=== PATIENT | female | born 1950 | race Caucasian/White ===

== ENCOUNTER 2016-12-08 12:54 | Emergency (ER) | payer MEDICARE ==
[~2016-12-08] VITALS: Ht 172.7 cm; Wt 119.3 kg
--- NOTE | ~2016-12-08 | EKG ---
PATIENT: KRISH LOVE UNIT #: [id number] Ventricular Rate: 73 BPM Atrial Rate: 73 BPM P-R Interval: 392 ms QRS Duration: 204 ms Q-T Interval: 490 ms QTC Calculation(Bezet): 539 ms Calculated R [place]: -72 degrees Calculated T [place]: 62 degrees Diagnosis Line: Electronic ventricular pacemaker Diagnosis Line: Left axis deviation Diagnosis Line: Possible Lateral infarct , age undetermined Diagnosis Line: Abnormal ECG Diagnosis Line: When compared with ECG of 16-MAY-2013 12:53, Diagnosis Line: Significant changes have occurred Diagnosis Line: Confirmed by LLOYD BERMAN MD ([id number]) on 12/09/2016 Diagnosis Line: 3:44:54 PM INTERPRETING MD: CULLEN VICTORIA
--- NOTE | ~2016-12-08 | CR72 ---
[facility] A Service of [facility] RADIOLOGY TEXT RESULTS PATIENT: KRISH LOVE LOCATION: [facility] : 49 UNIT #: [id number] AGE: [address]: Chris Walsh MD SEX: F ORDER DR: [id number] [facility] [address] [place], [place] [address] [id number] E MR#: [id number] Acc #: [id number] NAME: KRISH LOVE : 1950 SEX: F STUDY DATE/TIME: 12/08/2016 14:21 UNIT: [facility] ROOM: STUDY DESCRIPTION: CR Chest Single View Portable Attending Physician: Chris Walsh M.D. Ordering Physician: Chris Walsh M.D. Primary Care Physician: No Primary Care Physician MEDICAL IMAGING REPORT This report is preliminary unless electronic signature is present EXAM Portable chest HISTORY Shortness of breath with right leg swelling for the past day TECHNIQUE Single AP view chest was obtained. FINDINGS Cardiomegaly is noted. Pacemaker leads appear satisfactory. Diffuse interstitial prominence is noted bilaterally. This could reflect either acute interstitial edema or chronic interstitial lung disease. It is most prominent left base where there is moderate volume loss. No pleural fluid is seen. Pulmonary vascular markings are normal. IMPRESSION Diffuse bilateral interstitial infiltrates most prominent at the left lung base. The infiltrates are nonspecific but likely reflect chronic interstitial lung disease rather than acute interstitial edema. There is volume loss in the left base contributing to increased markings in this area. Cardiomegaly is noted. No definite active infiltrates are seen. Dictated by... Anmol Tran M.D. THIS IS AN ELECTRONICALLY VERIFIED REPORT Anmol Tran M.D. at 12/10/2016 10:57 AM BRITTON/ebony TD: 12/08/2016 21:05 JOB #: [id number] [facility] A Service [facility] RADIOLOGY TEXT RESULTS PATIENT: KRISH LOVE LOCATION: [facility] : 48 UNIT #: [id number] AGE: [address]: Chris Walsh MD SEX: F ORDER DR: MEDICAL IMAGING REPORT Page 1 of 1 COPY
--- NOTE | ~2016-12-08 | US85 ---
[facility] A Service of [facility] RADIOLOGY TEXT RESULTS PATIENT: KRISH LOVE LOCATION: [facility] : 48 UNIT #: [id number] AGE: [address]: Chris Walsh MD SEX: F ORDER DR: [id number] [facility] [address] [place], [place] [address] [id number] E MR#: [id number] Acc #: [id number] NAME: KRISH LOVE. : 1950 SEX: F STUDY DATE/TIME: 12/08/2016 15:09 UNIT: [facility] ROOM: STUDY DESCRIPTION: [facility] [facility] [employer] Attending Physician: Chris Walsh M.D. Ordering Physician: Chris Walsh M.D. Primary Care Physician: Primary Care Physician No MEDICAL IMAGING REPORT This report is preliminary unless electronic signature is present EXAM Right lower extremity venous ultrasound. HISTORY Read extremity pain and swelling and redness for 2 days. FINDINGS Ultrasound examination of the right lower extremity veins was performed from the groin to the calf with aranda-scale, color Doppler and spectral Doppler evaluation. There is nonocclusive DVT in the common femoral and in the proximal, mid and distal superficial femoral vein, with echogenic linear intraluminal filling defects suggesting chronic DVT. No additional DVT and no findings to suggest acute DVT. The remainder of the veins are patent and compressible. IMPRESSION 1. Nonocclusive chronic-appearing DVT in the common femoral vein and proximal mid and distal superficial femoral vein. 2. Remainder of the study is negative. Dictated by... Ifeanyi Philip M.D. THIS IS AN ELECTRONICALLY VERIFIED REPORT Ifeanyi Philip M.D. at 12/09/2016 10:02 PM DFL/rnr TD: 12/09/2016 00:26 JOB #: [id number] [facility] A Service of [facility] RADIOLOGY TEXT RESULTS PATIENT: KRISH LOVE LOCATION: [facility] #: [id number] : 48 UNIT #: [id number] AGE: [address]: Chris Walsh MD SEX: F ORDER DR: MEDICAL IMAGING REPORT Page 1 of 1 COPY
[~2016-12-08 12:54] MED LIST: ALBUTEROL17 GM INH; COUMADIN5 MG PO; DOXYCYCLINE HY100 M3 PO; KEFLEX500 M1 PO; LORTAB 5-325 M1 EACH PO; LOVENOX150 MG/ML SQ; MEDROL4 MG/DOSE- PO; NICOTINE TRANSD14 MG EXT; NO MEDICATIONS; ZITHROMAX1 G/PKT PO
[2016-12-08 14:48] LABS: BASOPHIL% 0.3 % (0-2.5); EOSINOPHIL# 0.2 X10e3 (0-0.7); EOSINOPHIL% 3.9 % (0.0-7.0); HEMATOCRIT 40.2 % (35.0-45.0); HEMOGLOBIN 13.3 gm/dL (12.0-16.0); LYMPHOCYTE# 1.5 X10e3 (1.0-3.5); LYMPHOCYTE% 23.1 % (17.0-45.0); MEAN CELL VOLUME 86.4 FL (83-96); MEAN CORPUSCULAR HEMOGLOBIN 28.5 PG (28-34); MEAN PLATELET VOLUME 7.2 FL (6.5-11.5); MONOCYTE# 0.4 X10e3 (0-1.0); MONOCYTE% 6.3 % (3.0-12.0); NEUTROPHIL# 4.3 X10e3 (1.5-7.1); NEUTROPHIL% 66.4 % (40-75); PLATELET COUNT 195 X10e3 (140-420); RED BLOOD COUNT 4.66 X10e (3.90-5.30); RED CELL DISTRIBUTION WIDTH 19.6 % (11.0-15.5); WHITE BLOOD COUNT 6.4 X10e3 (4.0-10.5)
[2016-12-08 14:53] LABS: DIFF IND NO
[2016-12-08 15:08] LABS: INR 2.8; PARTIAL THROMBOPLASTIN TIME 37.6 SECONDS (23.5-31.3); PROTHROMBIN TIME (PATIENT) 30.1 SECONDS (10.0-11.7)
[2016-12-08 15:10] LABS: POC - CKMB 1.5 ng/mL (0.0-7.9); POC - TROPONIN <0.05 ng/mL (<=0.05)
[2016-12-08 15:24] LABS: ALBUMIN SERUM 3.5 g/dL (3.5-5.0); BILIRUBIN, DIRECT 0.1 mg/dL (0.0-0.2); BILIRUBIN,INDIRECT 0.5 mg/dL (0.0-0.9); BILIRUBIN,TOTAL 0.6 mg/dL (0.2-2.0); BUN/CREATININE RATIO 14.54; CALCIUM SERUM 8.8 mg/dL (8.4-10.2); CREATININE SERUM 1.1 mg/dL (0.6-1.4); GLOM FILT RATE Estimated 51.9 mL/min (>60); POTASSIUM 4.1 mmol/L (3.5-5.1); PROTEIN TOTAL SERUM 6.9 g/dL (6.0-8.3)
[2016-12-08 17:12] LABS: POC - CKMB 1.6 ng/mL (0.0-7.9); POC - TROPONIN <0.05 ng/mL (<=0.05)
== END 2016-12-08 17:52 | disposition home or self-care (01) ==
LOC: CED 12:54
PROVIDERS: Emergency Medicine
DX: I82.511 Chronic embolism and thrombosis of right femoral vein (principal); Z79.01 Long term (current) use of anticoagulants; J44.9 Chronic obstructive pulmonary disease, unspecified; Z90.49 Acquired absence of other specified parts of digestive tract; F17.200 Nicotine dependence, unspecified, uncomplicated; Z88.8 Allergy status to other drugs, medicaments and biological substances
CPT/HCPCS: 71010; 80048; 80076; 82553; 84484; 85025; 85610; 85730; 93005; 93971; 99284